=== PATIENT | female | born 1960 | race Caucasian/White ===

== ENCOUNTER 2017-10-16 12:35 | Emergency (ER) | payer MEDICAID ==
[~2017-10-16] VITALS: Ht 160 cm; Wt 80.0 kg
[~2017-10-16 12:35] MED LIST: ATOR40TA71 PO; BENZ1TAB7 PO; CHOL100044 PO; CLOT15CR73 TP; DIPH-423 PO; DIPH25CA83 PO; GABA-532 PO; HYDR12.5 PO; HYDR50CA5 PO; LURA60TA2 PO; NALT50TA PO; NAPR250T4 PO; PRAZ2CAP2 PO; TRAZ-143 PO; VENL75TA90 PO
[2017-10-16 12:43] VITALS: BP 143/82
== END 2017-10-16 13:22 | disposition left against medical advice (07) ==
LOC: ER 12:39
DX: R21 Rash and other nonspecific skin eruption (principal); R60.0 Localized edema; M19.90 Unspecified osteoarthritis, unspecified site; F12.10 Cannabis abuse, uncomplicated; F15.10 Other stimulant abuse, uncomplicated; Z90.49 Acquired absence of other specified parts of digestive tract; Z90.710 Acquired absence of both cervix and uterus; Z79.899 Other long term (current) drug therapy; Z60.2 Problems related to living alone
CPT/HCPCS: 99281

== ENCOUNTER 2017-11-08 15:06 | Emergency (ER) | payer MEDICAID ==
[~2017-11-08] VITALS: Ht 160 cm; Wt 77.0 kg
[2017-11-08 15:25] VITALS: BP 137/84
[2017-11-08] MEDS ORDERED: DIPH25CA83 PO (16:31)
[2017-11-08] MEDS ORDERED: PERM60CR19 TP (16:31)
[2017-11-08] MEDS ORDERED: diphenhydrAMINE 50 mg/ml inj IM ONE (16:45)
[2017-11-08] MEDS ORDERED: triamcinolone acetonide 40mg/ml inj IM ONE (16:45)
[2017-11-08] MEDS ORDERED: CEPH-572 PO (16:47)
== END 2017-11-08 17:12 | disposition home or self-care (01) ==
LOC: ER 15:07
DX: B86 Scabies (principal); F12.10 Cannabis abuse, uncomplicated; F15.10 Other stimulant abuse, uncomplicated; M19.90 Unspecified osteoarthritis, unspecified site; Z90.49 Acquired absence of other specified parts of digestive tract; Z90.710 Acquired absence of both cervix and uterus; Z79.899 Other long term (current) drug therapy
CPT/HCPCS: 96372; 99284; J1200; J3301

== ENCOUNTER 2017-12-11 07:18 | Emergency (ER) | payer MEDICAID ==
[~2017-12-11] VITALS: Ht 160 cm; Wt 62.0 kg
[2017-12-11] MEDS ORDERED: loperamide 2mg capsule PO ONE (07:55)
[2017-12-11 08:10] LABS: BASOPHILS % (AUTO) 0 % (0-1); EOSINOPHILS # (AUTO) 0.1 X10'3 (0-0.9); EOSINOPHILS % (AUTO) 0.4 % (0-6); HEMATOCRIT 39.4 % (35.0-45.0); HEMOGLOBIN 13.6 g/dl (12.0-16.0); MEAN CORPUSCULAR HEMOGLOBIN 35.6 PG (27.0-31.0); MEAN CORPUSCULAR HGB CONC 34.6 % (33.0-36.5); MEAN CORPUSCULAR VOLUME 102.9 FL (78-98); MEAN PLATELET VOLUME 6.9 FL (7.4-10.4); MONOCYTES # (AUTO) 1.4 X10'3 (0-0.9); MONOCYTES % (AUTO) 11.5 % (2-12); NEUTROPHILS % (AUTO) 80.1 % (42-75); PLATELET COUNT 400 X10'3 (140-440); RED BLOOD COUNT 3.83 X10'6 (4.20-5.60); RED CELL DISTRIBUTION WIDTH 14.9 % (11.5-14.5); WHITE BLOOD COUNT 12.5 X10'3 (4.5-11.0)
[2017-12-11 08:29] LABS: PLATELET ESTIMATE NORMAL; TOTAL CELLS COUNTED 100
[2017-12-11 08:31] LABS: ALANINE AMINOTRANSFERASE 236 U/L (12-78); ALBUMIN 2.1 G/DL (3.4-5.0); ALBUMIN/GLOBULIN RATIO 0.5 (1.1-1.5); ALKALINE PHOSPHATASE 164 IU/L (46-116); ANION GAP 10 (8-16); ASPARTATE AMINO TRANSFERASE 55 U/L (10-37); BILIRUBIN,TOTAL 1.1 MG/DL (0.1-1.0); BLOOD UREA NITROGEN 29 MG/DL (7-18); BUN/CREATININE RATIO 38.2 (6.6-38.0); CALCIUM 8.6 MG/DL (8.5-10.1); CHLORIDE 102 MMOL/L (99-107); CREATININE 0.76 MG/DL (0.40-0.90); GLUCOSE 103 MG/DL (70-104); POTASSIUM 3.3 MMOL/L (3.5-5.1); SODIUM 137 MMOL/L (135-145); TOTAL CARBON DIOXIDE 25.1 MMOL/L (24-32); TOTAL PROTEIN 6.2 G/DL (6.4-8.2); eGFR 79 ML/MIN
[2017-12-11 08:34] LABS: CLARITY,URINE CLOUDY (Clear); COLOR,URINE YELLOW (Yellow); GLUCOSE, URINE NEGATIVE (Neg); KETONES,URINE NEGATIVE (Neg); LEUKOCYTE ESTERASE ,URINE LARGE (Neg); NITRITES, URINE POSITIVE (Neg); OCCULT BLOOD,URINE SMALL (Neg); PH,URINE 7.5 (4.8-8.0); PROTEIN,URINE 30 mg/dl (Neg); UROBILINOGEN,URINE 0.2 E.U/dL (0.2-1.0)
[2017-12-11 08:36] LABS: UA COLLECTION TYPE FOLEY CATH
[2017-12-11 08:39] LABS: BACTERIA,URINE 4+ /HPF (Neg); SQUAMOUS EPITHELIAL CELL,UR NONE SEEN /LPF (FEW); WBC,URINE TNTC /HPF (0-4)
[2017-12-11] MEDS ORDERED: CefTRIAXone 2gm/D5W 50ml 50 ML IV ONE (09:00)
[2017-12-11] MEDS ORDERED: normal saline 1000ML IV soln IVB ONE (09:00)
[2017-12-11] MEDS ORDERED: potassium Cl 20 mEq SR tablet PO STA (10:43)
[2017-12-11] MEDS ORDERED: normal saline 1000ml 1,000 ML IV ONE (10:45)
[2017-12-11] MEDS ORDERED: LOPE2CAP PO (10:50)
[2017-12-11] MEDS ORDERED: POTA20TA19 PO (10:50)
[2017-12-11 15:25] VITALS: BP 122/76
== END 2017-12-11 15:47 | disposition home or self-care (01) ==
LOC: ER 07:18
DX: N39.0 Urinary tract infection, site not specified (principal); R74.8 Abnormal levels of other serum enzymes; R19.7 Diarrhea, unspecified; R21 Rash and other nonspecific skin eruption; F12.90 Cannabis use, unspecified, uncomplicated; F15.90 Other stimulant use, unspecified, uncomplicated; R11.2 Nausea with vomiting, unspecified; M19.90 Unspecified osteoarthritis, unspecified site; Z79.899 Other long term (current) drug therapy; Z90.49 Acquired absence of other specified parts of digestive tract; Z90.710 Acquired absence of both cervix and uterus; Z56.0 Unemployment, unspecified
CPT/HCPCS: 36415; 71045; 80053; 81001; 85025; 87077; 87088; 87186; 93005; 96361; 96365; 99285; A4315; J0696; J7030

== ENCOUNTER 2018-07-19 11:56 | Inpatient (IN) | payer MEDICAID ==
[2018-07-17 14:26] LABS: BASOPHILS % (AUTO) 0.7 % (0-1); EOSINOPHILS % (AUTO) 0.4 % (0-6); LYMPHOCYTES # (AUTO) 2.2 X10'3 (1.1-4.8); LYMPHOCYTES % (AUTO) 31.8 % (21-51); MEAN CORPUSCULAR HEMOGLOBIN 30.9 PG (27.0-31.0); MEAN CORPUSCULAR HGB CONC 32.6 % (33.0-36.5); MEAN CORPUSCULAR VOLUME 94.8 FL (78-98); MEAN PLATELET VOLUME 6.5 FL (7.4-10.4); MONOCYTES # (AUTO) 0.3 X10'3 (0-0.9); MONOCYTES % (AUTO) 4.4 % (2-12); NEUTROPHILS # (AUTO) 4.5 X10'3 (1.8-7.7); NEUTROPHILS % (AUTO) 62.7 % (42-75); PRE OP HEMATOCRIT 42.4 % (35.0-45.0); PRE OP HEMOGLOBIN 13.8 g/dL (12.0-16.0); PRE OP PLATELET COUNT 519 X10'3 (140-440); RED BLOOD COUNT 4.48 X10'6 (4.20-5.60); RED CELL DISTRIBUTION WIDTH 13.5 % (11.5-14.5)
[2018-07-17 14:39] LABS: PRE OP PROTIME 9.9 SECONDS (9.0-12.0)
[2018-07-17 14:41] LABS: CLARITY,URINE SLIGHTLY CLOUDY (Clear); COLOR,URINE STRAW (Yellow); GLUCOSE, URINE NEGATIVE (Neg); KETONES,URINE >=80 mg/dl (Neg); LEUKOCYTE ESTERASE ,URINE NEGATIVE (Neg); NITRITES, URINE NEGATIVE (Neg); OCCULT BLOOD,URINE NEGATIVE (Neg); PROTEIN,URINE 30 mg/dl (Neg); UROBILINOGEN,URINE 0.2 E.U/dL (0.2-1.0)
[2018-07-17 14:50] LABS: ALBUMIN 3.7 G/DL (3.4-5.0); ALBUMIN/GLOBULIN RATIO 0.8 (1.1-1.5); ALKALINE PHOSPHATASE 111 IU/L (46-116); BLOOD UREA NITROGEN 15 MG/DL (7-18); CALCIUM 8.8 MG/DL (8.5-10.1); CHLORIDE 100 MMOL/L (99-107); CREATININE 0.75 MG/DL (0.40-0.90); PRE OP ALT 36 U/L (30-65); PRE OP ANION GAP 21 (8-16); PRE OP AST 30 U/L (10-37); PRE OP BILIRUB, TOTAL 0.3 MG/DL (0.0-1.0); PRE OP POTASSIUM 3.8 MMOL/L (3.4-5.1); PRE OP SODIUM 139 MMOL/L (135-145); TOTAL CARBON DIOXIDE 17.7 MMOL/L (24-32); TOTAL PROTEIN 8.2 G/DL (6.4-8.2); eGFR 80 ML/MIN
[2018-07-17 14:55] LABS: MUCUS STRANDS FEW /LPF (Neg); SQUAMOUS EPITHELIAL CELL,UR MANY /LPF (FEW); UA COLLECTION TYPE CLN CATCH MIDSTREAM
[2018-07-17 14:55] LABS: PRE OP GLUCOSE 53 MG/DL (70-104)
[2018-07-17 14:56] LABS: BACTERIA,URINE FEW /HPF (Neg); HYALINE CASTS 0-3 /LPF (NEGATIVE); RBC,URINE 0-2 /HPF (0-2); WBC,URINE 0-4 /HPF (0-4)
[~2018-07-19] VITALS: Ht 160 cm; Wt 60.0 kg
[2018-07-19] VITALS (20 sets, daily range): BP systolic 122–153; BP diastolic 55–97
[~2018-07-19 11:56] MED LIST changes: +AMOX-422 PO; -ATOR40TA71 PO; -BENZ1TAB7 PO; +CALC-1051 PO; -CLOT15CR73 TP; -DIPH-423 PO; -DIPH25CA83 PO; +DOCU-267 PO; -HYDR12.5 PO; -HYDR50CA5 PO; +LACT1CAP65 PO; +LEVO25TA2 PO; -LURA60TA2 PO; +MULT-933 PO; -NALT50TA PO; -NAPR250T4 PO; -PRAZ2CAP2 PO; -TRAZ-143 PO; -VENL75TA90 PO; +famotidine 20mg tablet PO ONE; +ringers solution, lacted 1,000 ML IV SCH
[2018-07-19] MEDS ORDERED: chlordiazePOXIDE 25mg capsule PO ONE (13:55)
[2018-07-19] MEDS ORDERED: ringers solution, lacted 1,000 ML IV SCH (14:09)
[2018-07-19] MEDS ORDERED: proCHLORperazine 10 MG/2 ml inj IV PRN (14:10)
[2018-07-19] MEDS ORDERED: morphine 4 MG/ML inj SYRINge IV PRN ×2 (14:10)
[2018-07-19] MEDS ORDERED: ondansetron/PF 4mg/2ml inj IV PRN (14:10)
[2018-07-19] MEDS ORDERED: meperidine/PF 25mg/ml syringe IV PRN ×3 (14:10)
[2018-07-19 14:32] LABS: URINE AMPHETAMINE SCREEN NEGATIVE (Neg); URINE BARBITUATE SCREEN NEGATIVE (Neg); URINE BENZODIAZEPINES SCREEN NEGATIVE (Neg); URINE CANNABINOID SCREEN NEGATIVE (Neg); URINE COCAINE SCREEN NEGATIVE (Neg); URINE METHADONE SCREEN NEGATIVE (Neg); URINE OPIATE SCREEN NEGATIVE (Neg); URINE PHENCYCLIDINE SCREEN NEGATIVE (Neg)
[2018-07-19] MEDS ORDERED: clindamycin phosphate 150mg/ml inj. ONE (15:15)
[2018-07-19] MEDS ORDERED: neostigmine methylsulfate 1 MG/ML 10ml vial ONE (15:17)
[2018-07-19] MEDS ORDERED: glycopyrrolate 0.2mg/ml inj ONE (15:17)
[2018-07-19] MEDS ORDERED: LIDOcaine 1%/PF 5ML 10 MG/ML VIAL ONE (15:17)
[2018-07-19] MEDS ORDERED: sevoflurane 250ml liquid IH ONE (15:17)
[2018-07-19] MEDS ORDERED: MIDAZolam 5mg/5ml vial ONE (15:32)
[2018-07-19] MEDS ORDERED: fentaNYL /PF 50mcg/ml 5ml ampule ONE (15:33)
[2018-07-19] MEDS ORDERED: ketorolac trometh. 30mg/ml inj. ONE (15:50)
[2018-07-19] MEDS ORDERED: propofol inj 20 ML IV ONE (15:50)
[2018-07-19] MEDS ORDERED: ondansetron/PF 4mg/2ml inj ONE (15:50)
[2018-07-19] MEDS ORDERED: rocuronium 10mg/ml inj IV ONE ×2 (15:50→16:47)
[2018-07-19] MEDS ORDERED: dexamethasone sod phosphate 4mg/ml inj. ONE (15:50)
[2018-07-19] MEDS ORDERED: HYDROmorphone 1 mg/ml syringe IV PRN (17:10)
[2018-07-19] MEDS ORDERED: LORazepam 2 mg/ml vial IV PRN (17:10)
[2018-07-19] MEDS ORDERED: haloperidol 5mg tablet PO PRN (17:10)
[2018-07-19] MEDS ORDERED: dextrose 50%-water 50ml dispensing syringe IV PRN (17:10)
[2018-07-19] MEDS ORDERED: haloperidol lactate 5mg/ml inj IM PRN (17:10)
[2018-07-19] MEDS ORDERED: GENTAMICIN SULFATE 40 MG/ML IV ONE (17:27)
--- NOTE | 2018-07-19 17:28 | NUR ---
Received from OR via , accompanied by Anesthesiologist DR BENJAMIN and report given by Anesthesiolgist. AWAKENS TO VOICE. VITALS STABLE. DRESSINGS DI. ALIX PAIN. ABD SOFT. GUNDERSON WITH CLEAR URINE.
[2018-07-19] MEDS ORDERED: thiamine 100mg/ml 2ml inj. IV ONE (17:45)
--- NOTE | 2018-07-19 18:48 | NUR ---
Report called to receiving nurse. Transferred via [facility]ongings . Special Issues communicated to receiving nurse. AWAKE AND ORIENTED. VITALS STABLE. DRESSINGS DI. STATES PAIN IMPROVING. TO SURGICAL RM 358B AT THIS TIME.
[2018-07-19] MEDS ORDERED: thiamine inj. 100 MG in normal saline 100ml IV soln 99 ML IV ONE (19:00)
[2018-07-19] MEDS: HYDROcodone/acetaminophen 10/325mg tab PO PRN (20:57)
[2018-07-19] MEDS: ketorolac trometh. 30mg/ml inj. IV PRN (22:17)
[2018-07-19] MEDS: ceFOXitin 1 GM ADDVANTAGE BAG 50 ML IV SCH (23:06)
[2018-07-20] VITALS: BP 99/67
[2018-07-20] MEDS: potassium CL 20mEq in D5-1/2NS 1,000 ML IV SCH ×4 (00:55→17:04)
[2018-07-20] MEDS: HYDROcodone/acetaminophen 10/325mg tab PO PRN ×3 (00:55→16:33)
[2018-07-20] MEDS ORDERED: ceFOXitin 2 GM ADDvantage bag 100 ML IV ONE (05:30)
[2018-07-20 05:40] VITALS: BP 114/71
[2018-07-20 06:19] LABS: BASOPHILS # (AUTO) 0.2 X10'3 (0-0.2); BASOPHILS % (AUTO) 2.1 % (0-1); EOSINOPHILS % (AUTO) 0.3 % (0-6); HEMOGLOBIN 11.6 g/dl (12.0-16.0); LYMPHOCYTES # (AUTO) 0.6 X10'3 (1.1-4.8); LYMPHOCYTES % (AUTO) 5.6 % (21-51); MEAN CORPUSCULAR HEMOGLOBIN 31.5 PG (27.0-31.0); MEAN CORPUSCULAR HGB CONC 33.3 % (33.0-36.5); MEAN CORPUSCULAR VOLUME 94.7 FL (78-98); MONOCYTES # (AUTO) 0.4 X10'3 (0-0.9); MONOCYTES % (AUTO) 3.9 % (2-12); NEUTROPHILS # (AUTO) 9.3 X10'3 (1.8-7.7); NEUTROPHILS % (AUTO) 88.1 % (42-75); PLATELET COUNT 319 X10'3 (140-440); RED BLOOD COUNT 3.69 X10'6 (4.20-5.60); RED CELL DISTRIBUTION WIDTH 13.7 % (11.5-14.5); WHITE BLOOD COUNT 10.5 X10'3 (4.5-11.0)
--- NOTE | 2018-07-20 06:20 | NUR ---
Problems reprioritized. Patient report given, questions answered & plan of care reviewed with Anita AGARWAL. Pt assisted to sink and back tobed to "comb hair" by RN
[2018-07-20 06:29] LABS: ALBUMIN 2.9 G/DL (3.4-5.0); ANION GAP 14 (8-16); BLOOD UREA NITROGEN 11 MG/DL (7-18); BUN/CREATININE RATIO 13.9 (6.6-38.0); CALCIUM 8.7 MG/DL (8.5-10.1); CHLORIDE 100 MMOL/L (99-107); CREATININE 0.79 MG/DL (0.40-0.90); GLUCOSE 226 MG/DL (70-104); POTASSIUM 4.4 MMOL/L (3.5-5.1); SODIUM 132 MMOL/L (135-145); TOTAL CARBON DIOXIDE 17.6 MMOL/L (24-32); eGFR 76 ML/MIN
--- NOTE | 2018-07-20 07:06 | NUR ---
Patient in room [facility] 358B. I have received report from Daniel AAGRWAL and had the opportunity to ask questions and assume patient care.
[2018-07-20 07:14] VITALS: BP 113/76
[2018-07-20] MEDS: ceFOXitin 1 GM ADDVANTAGE BAG 50 ML IV SCH (07:49)
--- NOTE | 2018-07-20 07:53 | NUR ---
called pharmacy about rate for Mefoxin, 0.1 ml/hr is incorrect. Change rate to 50 ml/hr.
[2018-07-20] MEDS ORDERED: ceFOXitin 1 GM ADDVANTAGE BAG 50 ML IV SCH (08:00)
[2018-07-20] MEDS: LORazepam 0.5 MG tablet PO PRN ×2 (09:16→19:02)
[2018-07-20 11:34] VITALS: BP 122/75
--- NOTE | 2018-07-20 16:20 | NUR ---
Initial: Pt admitted for colostomy takedown. Pt seen at bedside given written and verbal low fiber and colostomy reversal education with RD contact information. Patient's diet order just advanced to full liquid from NPO, pending PO intake. Pt endorses a good appetite and denies food allergies, difficulty chewing/swallowing, or constipation/diarrhea. LBM 07/20 however pt states no BM s/p surgery but that she's passing flatus. Will continue to follow. Recommendations: 1) Advance diet to low residue as medically indicated 2) Wt per rx Addendum: 07/20/18 at [address] Amended: Links added.
--- NOTE | 2018-07-20 18:29 | NUR ---
Problems reprioritized. Patient report given, questions answered & plan of care reviewed with Lori AGARWAL.
--- NOTE | 2018-07-20 18:30 | NUR ---
Received report from primary care nurse Anita AGARWAL. Assumed patient care. Patient laying in bed. In no apparent distress on room air. Call light and items of frequent use within reach. Will continue to monitor for changes.
[2018-07-20 19:00] VITALS: BP 115/77
[2018-07-20] MEDS: ketorolac trometh. 30mg/ml inj. IV PRN (19:03)
[2018-07-21] VITALS: BP 101/65
[2018-07-21] MEDS: potassium CL 20mEq in D5-1/2NS 1,000 ML IV SCH ×3 (01:04→17:04)
[2018-07-21] MEDS: ketorolac trometh. 30mg/ml inj. IV PRN (02:50)
--- NOTE | 2018-07-21 05:47 | NUR ---
D/C'd puentes catheter, pt has 175 out in F/C
--- NOTE | 2018-07-21 06:18 | NUR ---
I have received report from Sulema AGARWAL and had the opportunity to ask questions and assume patient care.
--- NOTE | 2018-07-21 06:40 | NUR ---
Reported off to Anita RN. Patient is resting with relaxed and unlabored respirations. On room air.
[2018-07-21 06:46] LABS: ALBUMIN 2.5 G/DL (3.4-5.0); ANION GAP 11 (8-16); BLOOD UREA NITROGEN 9 MG/DL (7-18); BUN/CREATININE RATIO 16.7 (6.6-38.0); CHLORIDE 107 MMOL/L (99-107); CREATININE 0.54 MG/DL (0.40-0.90); GLUCOSE 99 MG/DL (70-104); POTASSIUM 3.7 MMOL/L (3.5-5.1); SODIUM 138 MMOL/L (135-145); TOTAL CARBON DIOXIDE 20.2 MMOL/L (24-32); eGFR > 90 ML/MIN
[2018-07-21 06:57] LABS: BASOPHILS % (AUTO) 0.7 % (0-1); EOSINOPHILS # (AUTO) 0.1 X10'3 (0-0.9); EOSINOPHILS % (AUTO) 2.3 % (0-6); HEMATOCRIT 30.7 % (35.0-45.0); HEMOGLOBIN 10.3 g/dl (12.0-16.0); LYMPHOCYTES % (AUTO) 17.4 % (21-51); MEAN CORPUSCULAR HEMOGLOBIN 32.3 PG (27.0-31.0); MEAN CORPUSCULAR HGB CONC 33.6 % (33.0-36.5); MEAN CORPUSCULAR VOLUME 96.1 FL (78-98); MEAN PLATELET VOLUME 7.3 FL (7.4-10.4); MONOCYTES # (AUTO) 0.2 X10'3 (0-0.9); MONOCYTES % (AUTO) 4.4 % (2-12); NEUTROPHILS # (AUTO) 4.2 X10'3 (1.8-7.7); NEUTROPHILS % (AUTO) 75.2 % (42-75); PLATELET COUNT 249 X10'3 (140-440); RED BLOOD COUNT 3.19 X10'6 (4.20-5.60); RED CELL DISTRIBUTION WIDTH 13.6 % (11.5-14.5); WHITE BLOOD COUNT 5.5 X10'3 (4.5-11.0)
[2018-07-21 08:36] VITALS: BP 97/68
[2018-07-21] MEDS: HYDROcodone/acetaminophen 10/325mg tab PO PRN ×3 (08:42→20:02)
[2018-07-21] MEDS: LORazepam 0.5 MG tablet PO PRN ×3 (08:42→20:02)
[2018-07-21 11:23] VITALS: BP 110/66
[2018-07-21] MEDS ORDERED: LORazepam 2 mg/ml vial IV PRN (17:10)
[2018-07-21] MEDS ORDERED: LORazepam 1 MG tablet PO PRN (17:10)
--- NOTE | 2018-07-21 18:05 | NUR ---
Problems reprioritized. Patient report given, questions answered & plan of care reviewed with Marizol AGARWAL.
--- NOTE | 2018-07-21 18:46 | NUR ---
Patient in room [facility]. I have received report from Anita AGARWAL and had the opportunity to ask questions and assume patient care.
[2018-07-21 19:30] VITALS: BP 102/54
[2018-07-21] MEDS: calcium carbonate/vitamin D3 tablet PO SCH (20:01)
[2018-07-21] MEDS: amox tr/potassium clavulanate 875/125mg TAB PO SCH (20:01)
[2018-07-21] MEDS: gabapentin 300mg capsule PO SCH (20:02)
[2018-07-22] VITALS: BP 101/59
--- NOTE | 2018-07-22 | NUR ---
Patient's PIV infiltrated when flushed so dc'd. Patient would not allow for nurse to put in a new IV stating " if I need one tomorrow, I will get a new one put in then".
[2018-07-22] MEDS: potassium CL 20mEq in D5-1/2NS 1,000 ML IV SCH ×2 (01:04→09:04)
[2018-07-22] MEDS: HYDROcodone/acetaminophen 10/325mg tab PO PRN ×3 (02:39→19:55)
[2018-07-22] MEDS: LORazepam 0.5 MG tablet PO PRN (02:50)
--- NOTE | 2018-07-22 05:44 | NUR ---
Patient is concerned about her living situation when she is d/c'd. Also requesting prescriptions for thyroid medication,pain meds and ABX. New order put in for SS. Addendum: 07/22/18 at 0635 by Marizol Almanzar RN Actually, order is already in for consult so did not do.
[2018-07-22 05:58] LABS: BASOPHILS % (AUTO) 0.2 % (0-1); EOSINOPHILS # (AUTO) 0.2 X10'3 (0-0.9); EOSINOPHILS % (AUTO) 3.4 % (0-6); HEMATOCRIT 32.6 % (35.0-45.0); HEMOGLOBIN 10.7 g/dl (12.0-16.0); LYMPHOCYTES # (AUTO) 1.2 X10'3 (1.1-4.8); LYMPHOCYTES % (AUTO) 21.8 % (21-51); MEAN CORPUSCULAR HEMOGLOBIN 31.2 PG (27.0-31.0); MEAN CORPUSCULAR HGB CONC 32.7 % (33.0-36.5); MEAN CORPUSCULAR VOLUME 95.4 FL (78-98); MEAN PLATELET VOLUME 6.9 FL (7.4-10.4); MONOCYTES # (AUTO) 0.3 X10'3 (0-0.9); MONOCYTES % (AUTO) 5.3 % (2-12); NEUTROPHILS # (AUTO) 3.6 X10'3 (1.8-7.7); NEUTROPHILS % (AUTO) 69.3 % (42-75); PLATELET COUNT 263 X10'3 (140-440); RED BLOOD COUNT 3.42 X10'6 (4.20-5.60); RED CELL DISTRIBUTION WIDTH 14.1 % (11.5-14.5); WHITE BLOOD COUNT 5.3 X10'3 (4.5-11.0)
[2018-07-22 06:11] LABS: ALBUMIN 2.4 G/DL (3.4-5.0); ANION GAP 11 (8-16); BLOOD UREA NITROGEN 11 MG/DL (7-18); BUN/CREATININE RATIO 19.6 (6.6-38.0); CALCIUM 8.2 MG/DL (8.5-10.1); CHLORIDE 107 MMOL/L (99-107); CREATININE 0.56 MG/DL (0.40-0.90); GLUCOSE 96 MG/DL (70-104); POTASSIUM 3.4 MMOL/L (3.5-5.1); SODIUM 142 MMOL/L (135-145); eGFR > 90 ML/MIN
--- NOTE | 2018-07-22 06:15 | NUR ---
Patient in room [facility]. I have received report from STEFANO Fontana and had the opportunity to ask questions and assume patient care.
--- NOTE | 2018-07-22 06:36 | NUR ---
Problems reprioritized. Patient report given, questions answered & plan of care reviewed with Nataly AGARWAL.
[2018-07-22 07:30] VITALS: BP 98/68
[2018-07-22] MEDS: amox tr/potassium clavulanate 875/125mg TAB PO SCH ×2 (09:30→19:52)
[2018-07-22] MEDS: levoTHYROXINE 25mcg tablet PO SCH (09:30)
[2018-07-22] MEDS: gabapentin 300mg capsule PO SCH ×2 (09:31→19:52)
[2018-07-22] MEDS: lactobacillus rhamnosus 10,000 MMU CELLS/CAPSULE PO SCH (09:31)
[2018-07-22] MEDS: docusate sod 100mg capsule PO SCH (09:31)
[2018-07-22] MEDS: multivitamins, therapeutics tablet PO SCH (09:32)
[2018-07-22] MEDS: calcium carbonate/vitamin D3 tablet PO SCH ×2 (09:32→19:52)
[2018-07-22] MEDS: vitamin D (cholecalciferol) 1,000 unit tablet PO SCH (09:32)
[2018-07-22 11:00] VITALS: BP 122/88
[2018-07-22] MEDS ORDERED: potassium Cl 20 mEq SR tablet PO PRN ×2 (16:50)
[2018-07-22] MEDS ORDERED: magnesium 2GM in 50ml NS 50 ML IV PRN (16:50)
[2018-07-22] MEDS ORDERED: magnesium 4gm in 100ml NS 100 ML IV PRN (16:50)
[2018-07-22] MEDS ORDERED: potassium Cl 40MEQ/NS 500ml 500 ML IV PRN ×2 (16:50)
[2018-07-22] MEDS ORDERED: magnesium Cl slow-release 64mg tablet PO PRN (16:50)
--- NOTE | 2018-07-22 18:15 | NUR ---
Problems reprioritized. Patient report given, questions answered & plan of care reviewed with STEFANO Fontana.
--- NOTE | 2018-07-22 18:52 | NUR ---
Patient in room [facility]. I have received report from Nataly AGARWAL and had the opportunity to ask questions and assume patient care.
[2018-07-22 19:30] VITALS: BP 119/75
[2018-07-22] MEDS: magnesium hydroxide 30ml (MOM) UD suspension PO SCH (20:45)
[2018-07-23] VITALS: BP 96/52
[2018-07-23] MEDS: LORazepam 0.5 MG tablet PO PRN ×2 (03:52→21:40)
[2018-07-23] MEDS: HYDROcodone/acetaminophen 10/325mg tab PO PRN ×3 (03:52→19:09)
[2018-07-23 06:08] LABS: BASOPHILS % (AUTO) 0.2 % (0-1); EOSINOPHILS # (AUTO) 0.2 X10'3 (0-0.9); EOSINOPHILS % (AUTO) 4.2 % (0-6); HEMATOCRIT 30.6 % (35.0-45.0); HEMOGLOBIN 10.4 g/dl (12.0-16.0); LYMPHOCYTES # (AUTO) 1.4 X10'3 (1.1-4.8); LYMPHOCYTES % (AUTO) 23.5 % (21-51); MEAN CORPUSCULAR HEMOGLOBIN 32.4 PG (27.0-31.0); MEAN CORPUSCULAR HGB CONC 34.2 % (33.0-36.5); MEAN CORPUSCULAR VOLUME 94.9 FL (78-98); MEAN PLATELET VOLUME 7.1 FL (7.4-10.4); MONOCYTES # (AUTO) 0.3 X10'3 (0-0.9); MONOCYTES % (AUTO) 5.3 % (2-12); NEUTROPHILS # (AUTO) 3.9 X10'3 (1.8-7.7); NEUTROPHILS % (AUTO) 66.8 % (42-75); PLATELET COUNT 268 X10'3 (140-440); RED BLOOD COUNT 3.23 X10'6 (4.20-5.60); RED CELL DISTRIBUTION WIDTH 14.2 % (11.5-14.5); WHITE BLOOD COUNT 5.8 X10'3 (4.5-11.0)
[2018-07-23 06:18] LABS: ALBUMIN 2.5 G/DL (3.4-5.0); ANION GAP 8 (8-16); BLOOD UREA NITROGEN 15 MG/DL (7-18); BUN/CREATININE RATIO 23.4 (6.6-38.0); CALCIUM 8.5 MG/DL (8.5-10.1); CHLORIDE 103 MMOL/L (99-107); CREATININE 0.64 MG/DL (0.40-0.90); GLUCOSE 99 MG/DL (70-104); MAGNESIUM 1.5 MG/DL (1.5-2.4); SODIUM 138 MMOL/L (135-145); eGFR > 90 ML/MIN
--- NOTE | 2018-07-23 06:25 | NUR ---
Patient in room [facility]. I have received report from STEFANO Fontana and had the opportunity to ask questions and assume patient care.
--- NOTE | 2018-07-23 06:47 | NUR ---
Problems reprioritized. Patient report given, questions answered & plan of care reviewed with Nataly AGARWAL.
[2018-07-23 07:20] VITALS: BP 102/68
[2018-07-23] MEDS: levoTHYROXINE 25mcg tablet PO SCH (08:33)
[2018-07-23] MEDS: docusate sod 100mg capsule PO SCH (08:34)
[2018-07-23] MEDS: lactobacillus rhamnosus 10,000 MMU CELLS/CAPSULE PO SCH (08:34)
[2018-07-23] MEDS: amox tr/potassium clavulanate 875/125mg TAB PO SCH ×2 (08:34→19:08)
[2018-07-23] MEDS: calcium carbonate/vitamin D3 tablet PO SCH ×2 (08:34→19:09)
[2018-07-23] MEDS: magnesium hydroxide 30ml (MOM) UD suspension PO SCH ×2 (08:34→19:08)
[2018-07-23] MEDS: gabapentin 300mg capsule PO SCH ×2 (08:34→19:09)
[2018-07-23] MEDS: vitamin D (cholecalciferol) 1,000 unit tablet PO SCH (08:35)
[2018-07-23] MEDS: enoxaparin 40mg/0.4ml syringe SUBCUT SCH (08:35)
[2018-07-23] MEDS: multivitamins, therapeutics tablet PO SCH (08:35)
[2018-07-23 11:30] VITALS: BP 106/72
[2018-07-23] MEDS ORDERED: LORazepam 1 MG tablet PO PRN (17:10)
[2018-07-23] MEDS ORDERED: LORazepam 2 mg/ml vial IV PRN (17:10)
--- NOTE | 2018-07-23 18:38 | NUR ---
Problems reprioritized. Patient report given, questions answered & plan of care reviewed with STEFANO Carmona.
[2018-07-23] MEDS: ondansetron/PF 4mg/2ml inj IV PRN (19:08)
--- NOTE | 2018-07-23 19:20 | NUR ---
Patient states she has been nauseated all day and has been vomiting. Patient vomited 300ml of green emesis. Continue to complain of nausea and vomiting. Unable to eat lunch or dinner related to the NV. IV started and zofran administer. Will continue to assess.
[2018-07-23 20:00] VITALS: BP 122/83
--- NOTE | 2018-07-23 21:00 | NUR ---
Patient states she is feeling a lot better after zofran. No nausea or vomiting. Will continue with care.
[2018-07-23] MEDS: diatr meglu/diatrizoate 30ml oral sol.-(3 dose) bottle PO SCH (21:41)
[2018-07-23] MEDS: Melatonin 3mg tablet PO PRN (21:47)
--- NOTE | 2018-07-23 21:48 | NUR ---
PO contrast started tonight. Patient states understanding of NPO for CT tomorrow with overnight prep.
[2018-07-24] VITALS: BP 116/75
[2018-07-24] MEDS: HYDROcodone/acetaminophen 10/325mg tab PO PRN ×3 (04:18→20:56)
[2018-07-24 05:04] LABS: BASOPHILS % (AUTO) 0.2 % (0-1); EOSINOPHILS # (AUTO) 0.4 X10'3 (0-0.9); EOSINOPHILS % (AUTO) 5.3 % (0-6); HEMATOCRIT 31.9 % (35.0-45.0); HEMOGLOBIN 10.7 g/dl (12.0-16.0); LYMPHOCYTES # (AUTO) 1.6 X10'3 (1.1-4.8); LYMPHOCYTES % (AUTO) 20.9 % (21-51); MEAN CORPUSCULAR HEMOGLOBIN 31.8 PG (27.0-31.0); MEAN CORPUSCULAR HGB CONC 33.6 % (33.0-36.5); MEAN CORPUSCULAR VOLUME 94.7 FL (78-98); MEAN PLATELET VOLUME 6.9 FL (7.4-10.4); MONOCYTES # (AUTO) 0.5 X10'3 (0-0.9); MONOCYTES % (AUTO) 6.3 % (2-12); NEUTROPHILS % (AUTO) 67.3 % (42-75); PLATELET COUNT 312 X10'3 (140-440); RED BLOOD COUNT 3.37 X10'6 (4.20-5.60); RED CELL DISTRIBUTION WIDTH 14.9 % (11.5-14.5); WHITE BLOOD COUNT 7.5 X10'3 (4.5-11.0)
[2018-07-24 05:21] LABS: ALBUMIN 2.6 G/DL (3.4-5.0); ANION GAP 8 (8-16); BLOOD UREA NITROGEN 14 MG/DL (7-18); BUN/CREATININE RATIO 23.3 (6.6-38.0); CALCIUM 8.2 MG/DL (8.5-10.1); CHLORIDE 99 MMOL/L (99-107); GLUCOSE 104 MG/DL (70-104); MAGNESIUM 1.9 MG/DL (1.5-2.4); POTASSIUM 3.5 MMOL/L (3.5-5.1); SODIUM 137 MMOL/L (135-145); TOTAL CARBON DIOXIDE 30.5 MMOL/L (24-32); eGFR > 90 ML/MIN
--- NOTE | 2018-07-24 06:30 | NUR ---
Patient in room [facility]. I have received report from STEFANO Carmona and had the opportunity to ask questions and assume patient care.
[2018-07-24 07:00] VITALS: BP 111/70
[2018-07-24] MEDS: diatr meglu/diatrizoate 30ml oral sol.-(3 dose) bottle PO SCH ×2 (07:50→09:25)
[2018-07-24] MEDS: ondansetron/PF 4mg/2ml inj IV PRN (07:51)
[2018-07-24] MEDS: multivitamins, therapeutics tablet PO SCH (07:51)
[2018-07-24] MEDS: levoTHYROXINE 25mcg tablet PO SCH (07:51)
[2018-07-24] MEDS: docusate sod 100mg capsule PO SCH (07:51)
[2018-07-24] MEDS: calcium carbonate/vitamin D3 tablet PO SCH ×2 (07:51→20:47)
[2018-07-24] MEDS: lactobacillus rhamnosus 10,000 MMU CELLS/CAPSULE PO SCH (07:51)
[2018-07-24] MEDS: vitamin D (cholecalciferol) 1,000 unit tablet PO SCH (07:51)
[2018-07-24] MEDS: gabapentin 300mg capsule PO SCH ×2 (07:51→20:47)
[2018-07-24] MEDS: amox tr/potassium clavulanate 875/125mg TAB PO SCH ×2 (07:51→20:47)
[2018-07-24] MEDS: enoxaparin 40mg/0.4ml syringe SUBCUT SCH (07:52)
[2018-07-24] MEDS: ketorolac trometh. 30mg/ml inj. IV PRN (07:54)
[2018-07-24] MEDS: magnesium hydroxide 30ml (MOM) UD suspension PO SCH ×2 (08:00→20:47)
--- NOTE | 2018-07-24 09:17 | NUR ---
SS f/u w/[facility] re pt's acceptance into their program. Per t/c with [facility], they are expecting pt into their women's residential program. Pt will need cab ride to [address] [facility] in [place] [address].
[2018-07-24 11:00] VITALS: BP 95/60
[2018-07-24] MEDS: dextrose 5%-lactated ringers 1,000 ML IV SCH (11:42)
--- NOTE | 2018-07-24 14:07 | NUR ---
Reassessment: LBM 07/20, per surgeon notes pt with post-op ileus, pending CT with oral contrast for further eval. Pt currently NPO for OR previously on a regular diet with PO intake averaging 50% however noted that pt refused lunch and dinner yesterday. Per surgeon notes pt c/o N/V and mild abdominal pain. Routine MoM has been added to med list, pt also receiving routine Colace as of 07/22. Will continue to follow. Recommendations: 1) Advance diet to low residue as medically indicated 2) Continue bowel care; Monitor need for additional bowel care 3) Wt per rx Addendum: 07/24/18 at [address] Amended: Links added.
--- NOTE | 2018-07-24 18:28 | NUR ---
Problems reprioritized. Patient report given, questions answered & plan of care reviewed with STEFANO Carmona.
[2018-07-24 20:00] VITALS: BP 100/64
[2018-07-24] MEDS: Melatonin 3mg tablet PO PRN (22:05)
[2018-07-25] VITALS: BP 95/58
[2018-07-25] MEDS: metoclopramide 5 mg/ml inj IV SCH ×2 (02:45→07:40)
[2018-07-25] MEDS: dextrose 5%-lactated ringers 1,000 ML IV SCH (02:47)
[2018-07-25 04:54] LABS: MAGNESIUM 1.8 MG/DL (1.5-2.4); POTASSIUM 4.1 MMOL/L (3.5-5.1)
--- NOTE | 2018-07-25 06:32 | NUR ---
Problems reprioritized. Patient report given, questions answered & plan of care reviewed with LOIS AGARWAL.
[2018-07-25 07:00] VITALS: BP 106/65
[2018-07-25] MEDS: calcium carbonate/vitamin D3 tablet PO SCH ×2 (07:31→19:24)
[2018-07-25] MEDS: amox tr/potassium clavulanate 875/125mg TAB PO SCH ×2 (07:31→19:24)
[2018-07-25] MEDS: levoTHYROXINE 25mcg tablet PO SCH (07:32)
[2018-07-25] MEDS: multivitamins, therapeutics tablet PO SCH (07:32)
[2018-07-25] MEDS: vitamin D (cholecalciferol) 1,000 unit tablet PO SCH (07:32)
[2018-07-25] MEDS: HYDROcodone/acetaminophen 10/325mg tab PO PRN ×3 (07:32→19:24)
[2018-07-25] MEDS: lactobacillus rhamnosus 10,000 MMU CELLS/CAPSULE PO SCH (07:32)
[2018-07-25] MEDS: gabapentin 300mg capsule PO SCH ×2 (07:32→19:24)
[2018-07-25] MEDS: enoxaparin 40mg/0.4ml syringe SUBCUT SCH (07:33)
[2018-07-25] MEDS: magnesium hydroxide 30ml (MOM) UD suspension PO SCH (07:40)
[2018-07-25] MEDS: docusate sod 100mg capsule PO SCH (07:40)
[2018-07-25 11:00] VITALS: BP 94/55
[2018-07-25] MEDS: ondansetron/PF 4mg/2ml inj IV PRN (13:44)
--- NOTE | 2018-07-25 18:14 | NUR ---
Problems reprioritized. Patient report given, questions answered & plan of care reviewed with GITA AGARWAL.
--- NOTE | 2018-07-25 18:25 | NUR ---
Received report from Teresa AGARWAL pt is awake and alert watching tv in no apparent distress, call light and items of freq use within reach
[2018-07-25 19:00] VITALS: BP 97/54
[2018-07-25] MEDS: LORazepam 0.5 MG tablet PO PRN (20:54)
[2018-07-25] MEDS: Melatonin 3mg tablet PO PRN (20:54)
[2018-07-26 00:15] VITALS: BP 92/57
[2018-07-26] MEDS: HYDROcodone/acetaminophen 10/325mg tab PO PRN ×3 (03:49→19:31)
[2018-07-26 05:13] LABS: MAGNESIUM 1.7 MG/DL (1.5-2.4)
--- NOTE | 2018-07-26 06:11 | NUR ---
Patient in room [facility]. I have received report from JOSELIN AGARWAL and had the opportunity to ask questions and assume patient care.
--- NOTE | 2018-07-26 06:15 | NUR ---
Gave report to Teresa AGARWAL pt is awake and alert on RA, just got back from walking, laying in bed in no apparent distress, call light and items of freq use witihn reach.
[2018-07-26 07:00] VITALS: BP 90/57
[2018-07-26] MEDS: vitamin D (cholecalciferol) 1,000 unit tablet PO SCH (07:20)
[2018-07-26] MEDS: calcium carbonate/vitamin D3 tablet PO SCH ×2 (07:20→19:31)
[2018-07-26] MEDS: multivitamins, therapeutics tablet PO SCH (07:20)
[2018-07-26] MEDS: gabapentin 300mg capsule PO SCH ×2 (07:20→19:31)
[2018-07-26] MEDS: lactobacillus rhamnosus 10,000 MMU CELLS/CAPSULE PO SCH (07:20)
[2018-07-26] MEDS: levoTHYROXINE 25mcg tablet PO SCH (07:20)
[2018-07-26] MEDS: amox tr/potassium clavulanate 875/125mg TAB PO SCH ×2 (07:20→19:31)
[2018-07-26] MEDS: enoxaparin 40mg/0.4ml syringe SUBCUT SCH (07:21)
[2018-07-26] MEDS: docusate sod 100mg capsule PO SCH (07:27)
[2018-07-26] MEDS: dextrose 5%-lactated ringers 1,000 ML IV SCH (10:48)
[2018-07-26 11:14] VITALS: BP 100/64
--- NOTE | 2018-07-26 15:41 | NUR ---
Nutrition consult re: pt request RD visit. Pt seen at bedside, rediscussed low fiber diet and colostomy reversal education as well as the importance of protein for wound healing s/p surgery. Pt given coupons for ONS to help provide adequate nutrition following d/c. Per surgeon progress notes ileus resolved and pt overall doing well. LBM 07/26. Diet has been advanced to regular with documented PO intake 100% meeting nutrient needs. Will continue to follow. Recommendations: 1) Continue regular diet 2) Continue bowel care; Monitor need for additional bowel care 3) Wt per rx Addendum: 07/26/18 at [address] Amended: Links added.
[2018-07-26] MEDS ORDERED: dextrose 5%-lactated ringers 1,000 ML IV SCH (18:05)
--- NOTE | 2018-07-26 18:10 | NUR ---
Patient in room [facility]. I have received report from Teresa AGARWAL and had the opportunity to ask questions and assume patient care.
--- NOTE | 2018-07-26 18:25 | NUR ---
Problems reprioritized. Patient report given, questions answered & plan of care reviewed with JOSELIN AGARWAL.
[2018-07-26 19:00] VITALS: BP 103/60
[2018-07-26] MEDS: Melatonin 3mg tablet PO PRN (21:04)
[2018-07-26] MEDS: LORazepam 0.5 MG tablet PO PRN (21:04)
--- NOTE | 2018-07-26 22:13 | NUR ---
pt's Iv infiltrated, removed IV pt refused new IV at the moment
[2018-07-27] VITALS: BP 84/51
--- NOTE | 2018-07-27 00:40 | NUR ---
consulted with charge nurse Martha per pts B/P: she states pt runs on the lower side and that she is unsymptomatic will continue to monitor
--- NOTE | 2018-07-27 06:30 | NUR ---
Patient in room [facility]. I have received report from Vesta AGARWAL and had the opportunity to ask questions and assume patient care.
--- NOTE | 2018-07-27 06:38 | NUR ---
GAve report to Constanza AGARWAL pt is resting on RA, in no apparent distress, breaths even and unlabored, call light and items of freq use within reach.
[2018-07-27 06:40] LABS: MAGNESIUM 1.6 MG/DL (1.5-2.4)
[2018-07-27 07:27] VITALS: BP 110/70
[2018-07-27] MEDS: lactobacillus rhamnosus 10,000 MMU CELLS/CAPSULE PO SCH (08:26)
[2018-07-27] MEDS: vitamin D (cholecalciferol) 1,000 unit tablet PO SCH (08:26)
[2018-07-27] MEDS: amox tr/potassium clavulanate 875/125mg TAB PO SCH ×2 (08:26→19:41)
[2018-07-27] MEDS: gabapentin 300mg capsule PO SCH ×2 (08:26→19:41)
[2018-07-27] MEDS: multivitamins, therapeutics tablet PO SCH (08:26)
[2018-07-27] MEDS: calcium carbonate/vitamin D3 tablet PO SCH ×2 (08:26→19:41)
[2018-07-27] MEDS: enoxaparin 40mg/0.4ml syringe SUBCUT SCH (08:27)
[2018-07-27] MEDS: docusate sod 100mg capsule PO SCH (08:27)
[2018-07-27] MEDS: levoTHYROXINE 25mcg tablet PO SCH (08:34)
[2018-07-27 11:22] VITALS: BP 105/63
[2018-07-27] MEDS ORDERED: magnesium hydroxide 30ml (MOM) UD suspension PO ONE (13:35)
--- NOTE | 2018-07-27 18:06 | NUR ---
Problems reprioritized. Patient report given, questions answered & plan of care reviewed with Vesta AGARWAL.
[2018-07-27 18:30] VITALS: BP 104/63
--- NOTE | 2018-07-27 18:43 | NUR ---
Received report from Constanza AGARWAL pt is up walking around in no apparent distress, call light and items of freq use within reach.
[2018-07-27] MEDS: magnesium hydroxide 30ml (MOM) UD suspension PO SCH (19:40)
[2018-07-27] MEDS: HYDROcodone/acetaminophen 10/325mg tab PO PRN (19:41)
[2018-07-27] MEDS: Melatonin 3mg tablet PO PRN (21:33)
[2018-07-28] VITALS: BP 90/52
[2018-07-28] MEDS: HYDROcodone/acetaminophen 10/325mg tab PO PRN ×3 (05:38→20:14)
--- NOTE | 2018-07-28 06:18 | NUR ---
Gave report to Bita AGARWAL pt is awake and alert on RA in no apparent distress, call light and items of freq use within reach.
[2018-07-28 07:00] VITALS: BP 93/50
[2018-07-28] MEDS: lactobacillus rhamnosus 10,000 MMU CELLS/CAPSULE PO SCH (08:07)
[2018-07-28] MEDS: levoTHYROXINE 25mcg tablet PO SCH (08:07)
[2018-07-28] MEDS: docusate sod 100mg capsule PO SCH (08:07)
[2018-07-28] MEDS: amox tr/potassium clavulanate 875/125mg TAB PO SCH ×2 (08:07→20:12)
[2018-07-28] MEDS: gabapentin 300mg capsule PO SCH ×2 (08:08→20:13)
[2018-07-28] MEDS: enoxaparin 40mg/0.4ml syringe SUBCUT SCH (08:08)
[2018-07-28] MEDS: magnesium hydroxide 30ml (MOM) UD suspension PO SCH ×2 (08:08→20:00)
[2018-07-28] MEDS: multivitamins, therapeutics tablet PO SCH (08:08)
[2018-07-28] MEDS: vitamin D (cholecalciferol) 1,000 unit tablet PO SCH (08:08)
[2018-07-28] MEDS: calcium carbonate/vitamin D3 tablet PO SCH ×2 (08:08→20:13)
[2018-07-28 11:00] VITALS: BP 95/59
--- NOTE | 2018-07-28 18:45 | NUR ---
Problems reprioritized. Patient report given, questions answered & plan of care reviewed with STEFANO Tineo.
--- NOTE | 2018-07-28 18:49 | NUR ---
Patient in room [facility]. I have received report from Bita AGARWAL and had the opportunity to ask questions and assume patient care. Pt was resting comfortably in bed watching tv with no signs of distress. Will continue to monitor.
[2018-07-28 20:00] VITALS: BP 96/54
[2018-07-28] MEDS: Melatonin 3mg tablet PO PRN (21:06)
[2018-07-29] VITALS: BP 84/43
[2018-07-29] MEDS: HYDROcodone/acetaminophen 10/325mg tab PO PRN ×3 (03:15→20:50)
[2018-07-29 06:30] VITALS: BP 137/56
--- NOTE | 2018-07-29 06:40 | NUR ---
Patient in room [facility]. I have received report from STEFANO Tineo and had the opportunity to ask questions and assume patient care.
--- NOTE | 2018-07-29 06:48 | NUR ---
Problems reprioritized. Patient report given, questions answered & plan of care reviewed with Elayne RN.
[2018-07-29] MEDS: docusate sod 100mg capsule PO SCH (10:52)
[2018-07-29] MEDS: vitamin D (cholecalciferol) 1,000 unit tablet PO SCH (10:52)
[2018-07-29] MEDS: magnesium hydroxide 30ml (MOM) UD suspension PO SCH ×2 (10:52→20:00)
[2018-07-29] MEDS: amox tr/potassium clavulanate 875/125mg TAB PO SCH ×2 (10:52→20:49)
[2018-07-29] MEDS: multivitamins, therapeutics tablet PO SCH (10:53)
[2018-07-29] MEDS: calcium carbonate/vitamin D3 tablet PO SCH ×2 (10:53→20:51)
[2018-07-29] MEDS: levoTHYROXINE 25mcg tablet PO SCH (10:53)
[2018-07-29] MEDS: lactobacillus rhamnosus 10,000 MMU CELLS/CAPSULE PO SCH (10:53)
[2018-07-29] MEDS: gabapentin 300mg capsule PO SCH ×2 (10:53→20:49)
[2018-07-29] MEDS: enoxaparin 40mg/0.4ml syringe SUBCUT SCH (10:54)
[2018-07-29 11:30] VITALS: BP 103/56
--- NOTE | 2018-07-29 18:39 | NUR ---
Patient in room [facility]. I have received report from Elayne AGARWAL and had the opportunity to ask questions and assume patient care. Pt was up putting her dinner tray in the cabinet when I received report. She had eaten half of her meal. Gait was steady, pt had no signs of distress. Will continue to monitor.
[2018-07-29 20:00] VITALS: BP 99/61
[2018-07-29] MEDS: Melatonin 3mg tablet PO PRN (20:50)
--- NOTE | 2018-07-30 06:15 | NUR ---
Patient in room [facility]. I have received report from STEFANO Tineo and had the opportunity to ask questions and assume patient care.
--- NOTE | 2018-07-30 06:21 | NUR ---
Problems reprioritized. Patient report given, questions answered & plan of care reviewed with Nataly AGARWAL.
[2018-07-30 07:30] VITALS: BP 95/50
[2018-07-30] MEDS: magnesium hydroxide 30ml (MOM) UD suspension PO SCH (08:00)
[2018-07-30] MEDS: docusate sod 100mg capsule PO SCH (08:00)
[2018-07-30] MEDS: levoTHYROXINE 25mcg tablet PO SCH (09:04)
[2018-07-30] MEDS: lactobacillus rhamnosus 10,000 MMU CELLS/CAPSULE PO SCH (09:05)
[2018-07-30] MEDS: amox tr/potassium clavulanate 875/125mg TAB PO SCH (09:05)
[2018-07-30] MEDS: gabapentin 300mg capsule PO SCH (09:06)
[2018-07-30] MEDS: calcium carbonate/vitamin D3 tablet PO SCH (09:07)
[2018-07-30] MEDS: vitamin D (cholecalciferol) 1,000 unit tablet PO SCH (09:07)
[2018-07-30] MEDS: enoxaparin 40mg/0.4ml syringe SUBCUT SCH (09:08)
[2018-07-30] MEDS: multivitamins, therapeutics tablet PO SCH (09:09)
[2018-07-30 11:59] VITALS: BP 95/58
--- NOTE | 2018-07-30 13:30 | NUR ---
Patient discharged. No IV to remove. Education was given and patient verbalized understanding. Patient will follow up with Dr. Augustin on the of this month. Patient will be going to the [facility] for alcohol rehab. Patient was wheeled down by staff.
--- NOTE | 2018-07-30 13:36 | NUR ---
Reassessment: Documented PO intake 100% on regular diet meeting nutrient needs. Per surgeon progress notes patient doing well and awaiting transfer to rehab. [facility] 07/30. Will continue to follow. Recommendations: 1) Continue regular diet 2) Continue bowel care; Monitor need for additional bowel care 3) Wt per rx Addendum: 07/30/18 at [address] Amended: Links added.
== END 2018-07-30 13:30 | disposition home or self-care (01) | DRG 231 ==
LOC: PAS IN 11:56 → EDSTATUS 14:00 → SUR 3N 18:55
PROVIDERS: ADMIT Surgery; ATTEND Surgery
PROC: 3E0T3BZ Introduction of Anesthetic Agent into Peripheral Nerves and Plexi, Percutaneous Approach (ICD-10-PCS; 2018-07-19)
PROC: 0DNW0ZZ Release Peritoneum, Open Approach (ICD-10-PCS; 2018-07-19)
PROC: 0DBL0ZZ Excision of Transverse Colon, Open Approach (ICD-10-PCS; principal; 2018-07-19 15:17)
DX: Z43.3 Encounter for attention to colostomy (principal); K56.7 Ileus, unspecified; Z93.3 Colostomy status; Z86.14 Personal history of Methicillin resistant Staphylococcus aureus infection; Z86.19 Personal history of other infectious and parasitic diseases; Z90.710 Acquired absence of both cervix and uterus; Z98.891 History of uterine scar from previous surgery; Z90.49 Acquired absence of other specified parts of digestive tract
CPT/HCPCS: 36415; 74176; 80048; 80053; 80305; 80320; 81001; 82948; 83735; 84132; 84443; 85025; 85610; 85730; 86885; 86900; 86901; 87070; 93005; A6253; A6266; A6449; A7000; C1758; G0378; J0694; J1100; J1580; J1650; J1885; J2001; J2060; J2175; J2250; J2405; J2704; J2710; J2765; J3010; J3411; J3490; J7030; J7120; Q9963

== ENCOUNTER 2019-01-16 17:33 | Emergency (ER) | payer MEDICAID ==
[~2019-01-16] VITALS: Ht 172.7 cm; Wt 61.4 kg
[~2019-01-16 17:33] MED LIST changes: -AMOX-422 PO; -famotidine 20mg tablet PO ONE; -ringers solution, lacted 1,000 ML IV SCH
[2019-01-16 17:51] VITALS: BP 98/77
[2019-01-16] MEDS ORDERED: PERM60CR19 TP (19:30)
[2019-01-16] MEDS ORDERED: DIPH25CA83 PO (19:30)
== END 2019-01-16 19:47 | disposition home or self-care (01) ==
LOC: ER 17:35
DX: S30.861A Insect bite (nonvenomous) of abdominal wall, initial encounter (principal); S40.862A Insect bite (nonvenomous) of left upper arm, initial encounter; S40.861A Insect bite (nonvenomous) of right upper arm, initial encounter; S00.86XA Insect bite (nonvenomous) of other part of head, initial encounter; S10.96XA Insect bite of unspecified part of neck, initial encounter; M19.90 Unspecified osteoarthritis, unspecified site; F41.9 Anxiety disorder, unspecified; F32.9 Major depressive disorder, single episode, unspecified; F12.90 Cannabis use, unspecified, uncomplicated; F15.90 Other stimulant use, unspecified, uncomplicated; Z90.49 Acquired absence of other specified parts of digestive tract; Z90.710 Acquired absence of both cervix and uterus; Z56.0 Unemployment, unspecified; Z79.899 Other long term (current) drug therapy; W57.XXXA Bitten or stung by nonvenomous insect and other nonvenomous arthropods, initial encounter; Y93.89 Activity, other specified; Y92.89 Other specified places as the place of occurrence of the external cause; Y99.8 Other external cause status
CPT/HCPCS: 99283

== ENCOUNTER 2019-01-31 16:08 | Emergency (ER) | payer MEDICAID ==
[~2019-01-31] VITALS: Ht 160 cm; Wt 62.0 kg
[~2019-01-31 16:08] MED LIST changes: +DIPH25CA83 PO; +PERM60CR19 TP
[2019-01-31 16:23] VITALS: BP 143/89
[2019-01-31] MEDS ORDERED: DIPH-423 PO (17:57)
[2019-01-31] MEDS ORDERED: PERM60CR19 TP (17:57)
== END 2019-01-31 18:25 | disposition home or self-care (01) ==
LOC: ER 16:08
DX: S00.96XA Insect bite (nonvenomous) of unspecified part of head, initial encounter (principal); L98.8 Other specified disorders of the skin and subcutaneous tissue; M19.90 Unspecified osteoarthritis, unspecified site; F41.9 Anxiety disorder, unspecified; F32.9 Major depressive disorder, single episode, unspecified; F12.90 Cannabis use, unspecified, uncomplicated; F15.90 Other stimulant use, unspecified, uncomplicated; F10.99 Alcohol use, unspecified with unspecified alcohol-induced disorder; Z90.49 Acquired absence of other specified parts of digestive tract; Z90.710 Acquired absence of both cervix and uterus; Z56.0 Unemployment, unspecified; Z59.0 Homelessness; Z79.899 Other long term (current) drug therapy; W57.XXXA Bitten or stung by nonvenomous insect and other nonvenomous arthropods, initial encounter; Y93.89 Activity, other specified; Y92.89 Other specified places as the place of occurrence of the external cause; Y99.8 Other external cause status; Y90.9 Presence of alcohol in blood, level not specified
CPT/HCPCS: 99283